=== PATIENT | male | born 1975 | race Caucasian/White ===

== ENCOUNTER → 2021-01-16 01:40 | Outpatient (CLI) | payer BC, SELFPAY ==
[2021-01-16 19:38] LABS: SARS-CoV-2 RNA PCR Negative
== END ==
PROVIDERS: PCP Family Medicine; Visit Provider Internal Medicine Gastroenterology
DX: Z01.812 Encounter for preprocedural laboratory examination (principal); Z20.822 Contact with and (suspected) exposure to COVID-19
CPT/HCPCS: C9803; U0003; U0005

== ENCOUNTER 2021-01-20 02:01 | Day surgery (SDC) | payer BC, SELFPAY ==
[2021-01-15 16:11] VITALS: BMI 29.3
[2021-01-20 09:29] VITALS: BP 126/86; PULSE 91; RESP 16; TEMP 36.7; O2SAT 100; BMI 29.0
[2021-01-20] MEDS: LACTATED RINGERS 1,000 ML 150 ML IV CONT (09:32)
--- NOTE | 2021-01-20 10:15 | WPDGICN ---
Assessment and Plan Assessment and plan (1) Rectal bleeding: Code(s): K62.5 - Hemorrhage of anus and rectum Status: Acute Assessment and Plan: Patient has had rectal bleeding and mucus in his stools over the last 3 months that this is a change from his baseline soft stool. For this reason colonoscopy will be performed. Differential diagnosis includes hemorrhoids, proctitis,polyps, etc. plan is to proceed with colonoscopy before executed treatment plan. (2) Anxiety and depression: Code(s): F41.9 - Anxiety disorder, unspecified; F32.9 - Major depressive disorder, single episode, unspecified Status: Chronic GI Consult Note Consult date/time: 01/20/21 10:15 HPI: Thomas Art is a 45 year old male Seen in evaluation at the request of Dr. Atkins. Patient reports a lifelong history of soft stools. Usually 1-2 a day. He over last 3 months he has noticed significant gas along with mucus and occasional bright red blood per rectum typically in the morning. She denies any change in bowel habits. He denies any pain. His stools have remained loose as they have been for many years. Stools themselves have had no blood. Patient's family history is noncontributory. He denies any recent illness. His family members have been healthy. Primary care service is empirically given the patient a trial of prednisone over last 1 week with no change in symptoms. Patient was given a trial of a proton pump inhibitor with no change in symptoms as well. Review of Systems Review of Systems: All systems reviewed & are unremarkable except as noted in HPI and below PMFSH Past Medical History Medical History (Updated 01/20/21 @ 10:17 by Vincent Moreno MD) Anxiety and depression Recurrent sinusitis Vitamin D deficiency Family History Family History Father Diabetes mellitus Mother Diabetes mellitus Social History Social History Smoking status: Never smoker Alcohol intake: current Drinks per week: 5 Living arrangements: with family Spiritual care concerns: No Meds Home Medications and Allergies Home Medications Medication Instructions Recorded Confirmed Type citalopram 20 mg tablet 20 mg PO DAILY #90 tablet 10/15/20 01/20/21 Rx esomeprazole magnesium 40 mg 40 mg PO DAILY #90 tab-cap 10/15/20 01/20/21 Rx capsule,delayed release cetirizine [Zyrtec] 10 mg PO DAILY PRN 01/15/21 01/20/21 History multivitamin [Men's Multi-Vitamin] 1 tablet PO DAILY 01/15/21 01/20/21 History Allergies Allergy/AdvReac Type Severity Reaction Status Date / Time No Known Allergies Allergy Mild Verified 01/20/21 09:28 Vital Signs Vital Signs - 24 hr 01/20/21 09:29 Temperature 98.1 F Pulse Rate 91 Respiratory Rate 16 Blood Pressure 126/86 Pulse Oximetry 100 Exam Narrative: Exam Narrative: Physical exam reveals patient to be alert. Vital signs stable. HEENT exam is unremarkable. Patient is anicteric. Lungs are clear to auscultation and percussion. Heart is without murmur or extra sounds. Abdominal exam bowel sounds are present soft nontender with no hepatosplenomegaly. Digital external rectal exam is normal.
--- NOTE | 2021-01-20 10:24 | WPDANESEPPF ---
Anes - Initial Pre Proc Eval Procedure: Operation Date: 01/20/21 10:00 Proposed Procedures p Colonoscopy - Vincent Moreno MD Date/Time: 01/20/21 10:24 Surgeon: Vincent Moreno MD Pre Op Diagnosis: bloody diarrhea Patient Data Age: 45 Gender: M Height: 5 ft 7 in Weight: 83.9 kg Last Vital Signs Temp 98.1 F 01/20/21 09:29 Pulse 91 01/20/21 09:29 Resp 16 01/20/21 09:29 BP 126/86 01/20/21 09:29 Pulse Ox 100 01/20/21 09:29 Allergies Allergy/AdvReac Type Severity Reaction Status Date / Time No Known Allergies Allergy Mild Verified 01/20/21 09:28 Home Medications Medication Instructions Recorded Confirmed Type citalopram 20 mg tablet 20 mg PO DAILY #90 tablet 10/15/20 01/20/21 Rx esomeprazole magnesium 40 mg 40 mg PO DAILY #90 tab-cap 10/15/20 01/20/21 Rx capsule,delayed release cetirizine [Zyrtec] 10 mg PO DAILY PRN 01/15/21 01/20/21 History multivitamin [Men's Multi-Vitamin] 1 tablet PO DAILY 01/15/21 01/20/21 History Patient hx anesthesia problems: none Family hx anesthesia problems: none [facility] Past Medical History Medical History (Updated 01/20/21 @ 10:17 by Vincent Moreno MD) Anxiety and depression Recurrent sinusitis Vitamin D deficiency Family History Family History Father Diabetes mellitus Mother Diabetes mellitus Social History Social History Smoking status: Never smoker Alcohol intake: current Drinks per week: 5 Living arrangements: with family Spiritual care concerns: No Anes - Eval Final PreProcedure Day of Procedure 01/20/21 10:24 Patient weight: normal Heart: regular rate and rhythm Lungs: clear to auscultation Airway: Mallampati scale class II Neurological: alert and oriented Last oral intake: >/= 8 hours ASA classification: II Emergent: no Anesthetic plan: proceed Anesthesia type and monitoring: general GIVS and standard monitoring Informed Consent: The patient's anesthetic plan and its attendant risks and benefits were discussed with the patient/family/POA. Questions were solicited and answers provided to the satisfaction of the patient/family/POA.
[2021-01-20 10:49] VITALS: BP 76/51; PULSE 76; RESP 27; O2SAT 91
[2021-01-20 10:59] VITALS: BP 88/49; PULSE 75; RESP 16; O2SAT 92
[2021-01-20 11:09] VITALS: BP 108/71; PULSE 76; RESP 11; O2SAT 97
== END 2021-01-20 11:24 | disposition home or self-care (01) ==
PROVIDERS: PCP Family Medicine; Visit Provider Internal Medicine Gastroenterology
PROC: 0DJD8ZZ Inspection of Lower Intestinal Tract, Via Natural or Artificial Opening Endoscopic (ICD-10-PCS; CPT 45378; principal; 2021-01-20 10:00)
DX: K51.214 Ulcerative (chronic) proctitis with abscess (principal); F41.8 Other specified anxiety disorders; E55.9 Vitamin D deficiency, unspecified
CPT/HCPCS: 45380; 88305; C9803; J2704; J7120; U0003; U0005

== ENCOUNTER 2022-07-10 10:26 | Emergency (ER) | payer BC, SELFPAY ==
[2022-07-10 10:53] VITALS: BP 118/71; PULSE 116; RESP 16; TEMP 37.1; O2SAT 97
--- NOTE | 2022-07-10 11:48 | ED.URI ---
HPI - URI/Sore Throat General Chief Complaint: Upper Respiratory Infection Stated Complaint: cold/flu Time Seen by Provider: 07/10/22 11:00 Source: patient Mode of arrival: ambulatory Limitations: no limitations History of Present Illness HPI Narrative: Mr. Art is a 46-year-old male patient presenting to clinic today with complaints of cold/flu symptoms. He reports that for 2 days he has had a lot of fever, chills, body aches, sore throat, and congestion. MD elicited complaint: sore throat and nasal congestion Related Data Home Medications Medication Instructions Recorded Confirmed multivitamin 1 tablet PO DAILY 01/15/21 07/10/22 esomeprazole magnesium 40 mg 40 mg PO DAILY 07/10/22 07/10/22 capsule,delayed release Allergies Allergy/AdvReac Type Severity Reaction Status Date / Time No Known Allergies Allergy Mild Verified 07/10/22 10:54 Review of Systems Review of Systems: Pertinent positives per HPI. Patient denies any rash, headache, visual changes, dizziness, shortness of breath, chest pain, palpitations, nausea, vomiting, diarrhea, constipation, abdominal pain, or any urinary issues. 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 There is no relevant family history pertinent to the patient complaint. Exam Narrative: General: Well-developed, well nourished, in no apparent distress Head: Normocephalic, atraumatic Eyes: Pupils equally round and reactive to light bilaterally, EOM intact, sclera and conjunctive clear, no discharge, lids normal Ears: TMs intact and clear, ear canals clear, no drainage, grossly hearing normal. Nose: Nares patent, clear nasal discharge, no inflammation, no sinus tenderness. Mouth: Oral pharynx without lesions or masses, good dentition, MMM. Oropharynx red, postnasal drip Neck: Supple, trachea midline, no enlargement of anterior or posterior cervical nodes, no thyroid masses or goiter palpable. Cardio: Regular rate and rhythm, s1 and s2 normal, no murmur appreciated. Resp: Clear to auscultation bilaterally, no rhonchi, rales, wheezing or rubs Course Course Emergency Course: Portions of this record may have been created with voice recognition software. Level of Care: Express Care Visit Vital Signs Vital signs: Vital Signs Temperature 37.1 C 07/10/22 10:53 Pulse Rate 116 H 07/10/22 10:53 Respiratory Rate 16 07/10/22 10:53 Blood Pressure 118/71 07/10/22 10:53 Pulse Oximetry 97 07/10/22 10:53 Temperature 37.1 C 07/10/22 10:53 Pulse Rate 116 H 07/10/22 10:53 Respiratory Rate 16 07/10/22 10:53 Blood Pressure 118/71 07/10/22 10:53 Pulse Oximetry 97 07/10/22 10:53 Vital signs reviewed MDM - URI/Sore Throat MDM Narrative Medical decision making narrative: At the time of visit patient is resting comfortably on the exam table. Strep and influenza screen were completed in the clinic and were negative. Offered COVID testing and patient declined at this time. I suspect the patient has an upper respiratory infection/pharyngitis/viral syndrome. Supportive measures were discussed and natasha
== END 2022-07-10 12:12 | disposition home or self-care (01) ==
PROVIDERS: Emergency Provider Nurse Practitioner Family; PCP Family Medicine
DX: J06.9 Acute upper respiratory infection, unspecified (principal); B34.9 Viral infection, unspecified; J02.9 Acute pharyngitis, unspecified; F41.9 Anxiety disorder, unspecified; F32.A Depression, unspecified
CPT/HCPCS: 87081; 87804; 87880; 99213; G0463

== ENCOUNTER 2024-03-20 09:22 | Outpatient (CLI) | payer OTHER, SELFPAY ==
[2024-04-08 17:26] VITALS: BMI 30.4
--- NOTE | 2024-04-08 17:26 | WPDHOMESLEEP ---
Sleep Study - Home Unattended Date of Study: 03/20/24 Ordering Provider: ARNAV Medina Interpreting Provider: Susan Irizarry, DO Home Sleep Study Type: Watch PAT Height: 1.7 m Weight: 87.997 kg Body Mass Index: 30.4 Neck Circumference (inches): 17 Shubert: 6 Reason for Sleep Study snoring, daytime hypersomnia Sleep History The patient is a 48-year-old male that had a sleep study ordered by the pulmonary group for evaluation of sleep apnea. The patient rarely awakens from sleep short of breath. He occasionally awakens at night with heartburn, belching or cough. He occasionally snores but it is never loud enough that others complain. He constantly has trouble sleeping when he has a cold. He rarely wakes up gasping for air throughout the night. He occasionally has breathing problems at night observed by himself or others. He denies sweating excessively at night. He denies having heart palpitations or irregular heartbeats during the night. He occasionally falls asleep during the day but never while driving. He denies sleep paralysis and cataplexy. He occasionally has trouble at school or work due to sleepiness. He rarely experiences vivid dreamlike scenes upon awakening or falling asleep. He denies feeling afraid of going to sleep. He rarely has nightmares. He rarely remembers his dreams. He frequently has thoughts racing through his mind. He rarely feels sad or depressed. He frequently has anxiety. He occasionally has muscular tension. He occasionally notices parts of his body jerk. He denies kicking during the night. He denies having crawling and aching feelings in his legs and denies having leg pain during the night. He denies grinding his teeth during sleep and denies awakening with morning jaw pain. He is occasionally bothered by pain during the day but never awakened by pain during the night. He occasionally wakes up feeling stiff in the morning. He occasionally wakes up with sore or achy muscles. He rarely wakes up with pain in the neck, spine or other joints. He goes to bed at 8:00 p.m. on weekdays and at 9:00 p.m. on the weekends. It takes him 30 minutes to fall asleep. He wakes up throughout the night for unknown reasons and can take 1-2 hours to fall back asleep. He wakes up at 4:30 a.m. on weekdays and at 7:30 a.m. on the weekends. He typically gets 6-8 hours of sleep per night. He will stay in bed for 30-60 minutes after waking up in the morning. He currently lives with his and 2 children. He denies consuming any caffeinated beverages within 2 hours of bedtime. He denies engaging in physical exercise before bedtime. He denies reading before falling asleep. He will take naps in afternoon or the evening but they are not refreshing. He consumes 2-3 caffeinated beverages throughout the day. He will occasionally have 1 alcoholic beverage. He denies tobacco and recreational drug use. 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
== END 2024-03-21 14:24 | disposition home or self-care (01) ==
LOC: ANHCSM 09:22
PROVIDERS: PCP Family Medicine; Visit Provider Physician Assistant
DX: G47.33 Obstructive sleep apnea (adult) (pediatric) (principal); G47.10 Hypersomnia, unspecified
CPT/HCPCS: 95800

== ENCOUNTER 2024-06-13 08:18 | Outpatient (CLI) | payer OTHER, SELFPAY ==
--- NOTE | ~2024-06-13 | XR_ITS ---
EXAMINATION: XR wrist LT 2V DATE: 06/13/2024 08:26 INDICATION: Left wrist pain. TECHNIQUE: 2 views of left wrist were obtained. COMPARISON: None. FINDINGS: Bone alignment is normal. No fracture. Joint spaces are normal. IMPRESSION: 1. Normal left wrist. Reviewed, dictated and finalized at location B. IMPRESSION: 1. Normal left wrist.
== END 2024-06-13 08:19 | disposition home or self-care (01) ==
LOC: GOSHIMG 08:19
PROVIDERS: PCP Family Medicine; Visit Provider Student in an Organized Health Care Education/Training Program
DX: M25.532 Pain in left wrist (principal)
CPT/HCPCS: 73100

== ENCOUNTER 2024-07-10 08:43 | Outpatient (CLI) | payer OTHER, SELFPAY ==
--- NOTE | 2024-07-10 08:49 | ECHO_ITS ---
Patient Info Name: Thomas Art Age: 48 years : 1975 Gender: Male Ht: 67 in Wt: 194 lbs BSA: 2.07 m2 HR: 65 bpm BP: 131 / 91 mmHg Heart Rhythm: Sinus Rhythm Technical Quality: Good Exam Date: 07/10/2024 9:14 AM Exam Location: Echo Lab Patient Status: Outpatient Admit Date: 07/10/2024 Staff Ordering Physician: Allison Greenfield PA-C Delivery Manager: Wilber Hernandez RDCS Attending Provider: Allison Greenfield PA-C Exam Type: CA echo doppler color flow Study Info Indications - primmary centeral sleep apnea Complete two-dimensional, color flow and Doppler transthoracic echocardiogram is performed. Summary 1. Complete two-dimensional, color flow and Doppler transthoracic echocardiogram is performed. 2. Left ventricular chamber dimension is normal. 3. Left ventricular systolic function is normal, estimated at 60-65%. 4. The left ventricular diastolic function is grade I diastolic dysfunction. 5. E/e' 10 is mildly elevated. 6. Left atrial chamber dimension is mildly enlarged. 7. There is mild mitral valve regurgitation. 8. There is trace tricuspid valve regurgitation. 9. No pulmonary hypertension, estimated pulmonary arterial systolic pressure is 26 mmHg. Left Ventricle E/e' 10 is mildly elevated. Left ventricular chamber dimension is normal. Left ventricular systolic function is normal, estimated at 60-65%. The left ventricular diastolic function is grade I diastolic dysfunction. Right Ventricle Right ventricular systolic function is normal and with normal TAPSE 2.9 cm. Right ventricular chamber dimension is normal. Left Atria Left atrial chamber dimension is mildly enlarged. Right Atria Right atrial chamber dimension is normal. Aortic Valve The aortic valve is trileaflet. There is no aortic valve stenosis. There is no aortic valve regurgitation. Pulmonic Valve There is no pulmonic regurgitation. Mitral Valve There is no mitral valve stenosis. There is mild mitral valve regurgitation. Tricuspid Valve There is trace tricuspid valve regurgitation. No pulmonary hypertension, estimated pulmonary arterial systolic pressure is 26 mmHg. Pericardium/Pleural There is no pericardial effusion. Inferior Vena Cava Normal inferior vena cava with >50% collapse upon inspiration consistent with normal right atrial pressure, 5 mmHg. Aorta The aortic root size at the sinus of Valsalva is normal. Left Ventricular Outflow Tract Name Value Normal LVOT 2D LVOT Diameter 1.8 cm LVOT Doppler LVOT Peak Gradient 5 mmHg LVOT Mean Gradient 3 mmHg LVOT VTI 23 cm LVOT VTI/AV VTI Ratio 0.9 LVOT Stroke Volume 59 ml LVOT CO 3.9 l/min LVOT CI 1.9 l/min/m2 Mitral Valve Name Value Normal MV Doppler MV Decel Steele 425 cm/s2 MV PHT 56 ms MV Area (PHT) 4.0 cm2 4.0-5.0 MV Regurgitation Doppler MR Peak Gradient 41 mmHg MV Diastolic Function MV E Peak Velocity 82 cm/s MV A Peak Velocity 96 cm/s MV E/A 0.8 MV Decel Time 192 ms MV Annular TDI MV E/e' (Septal) 13.0 <=8.0 MV E/e' (Lateral) 8.8 <=8.0 MV E/e' (Average) 10.9 Tricuspid Valve Name Value Normal TV Regurgitation Doppler TR Peak Velocity 229 cm/s TR Peak Gradient 21 mmHg Estimated PAP/RSVP RA Pressure 5 mmHg <=5 PA Systolic Pressure 26 mmHg <36 RV Systolic Pressure 26 mmHg <36 Aortic Valve Name Value Normal AV Doppler AV Peak Velocity 125 cm/s AV Peak Gradient 6 mmHg AV Mean Gradient 4 mmHg AV VTI 26 cm AV Area (Cont Eq VTI) 2.3 cm2 >=3.0 AV Area (Cont Eq [place]) 2.2 cm2 AV Regurgitation 2D LVOT Area 2.5 cm2 Ventricles Name Value Normal LV Dimensions 2D/MM IVS Diastolic Thickness (2D) 0.9 cm 0.6-1.0 LVID Diastole (2D) 4.6 cm 4.2-5.8 LVIW Diastolic Thickness (2D) 1.0 cm 0.6-1.0 LVID Systole (2D) 3.1 cm 2.5-4.0 LVOT Diameter 1.8 cm LV Mass (2D Cubed) 148.60 g 88.00-224.00 LV Mass Index (2D Cubed) 72 g/m2 49-115 Relative Wall Thickness (2D) 0.45 LV Fractional Shortening/Ejection Fraction 2D/MM LV Fractional Shortening (2D) 33 % 25-43 LV EF (2D Teicholz) 62 % 52-72 LV Diastolic Volume (4C MOD) 102 ml LV EF (4C MOD) 71 % LV Diastolic Volume (2C MOD) 103 ml LV EF (2C MOD) 62 % LV Diastolic Volume (BP MOD) 103 ml 62-150 LV Diastolic Volume Index (BP MOD) 50 ml/m2 34-74 LV Systolic Volume (BP MOD) 35 ml 21-61 LV Systolic Volume Index (BP MOD) 17 ml/m2 11-31 LV EF (BP MOD) 66 % 52-72 LV Diastolic Length (4C) 7.4 cm LV Systolic Length (4C) 5.8 cm LV Stroke Volume (4C MOD) 72 ml Atria Name Value Normal LA Dimensions LA Volume (4C A-L) 36 ml LA Volume (BP A-L) 48 ml RA Dimensions RA Area (4C) 14.5 cm2 <=18.0 Report Signatures
== END 2024-07-10 08:44 | disposition home or self-care (01) ==
PROVIDERS: PCP Family Medicine; Visit Provider Physician Assistant
DX: G47.31 Primary central sleep apnea (principal); R93.1 Abnormal findings on diagnostic imaging of heart and coronary circulation
CPT/HCPCS: 93306

== ENCOUNTER 2024-12-23 17:11 | Outpatient (CLI) | payer OTHER, SELFPAY ==
--- OUTSIDE RECORDS SUMMARY | 2024-12-23 17:30 | XMS_ITS | Continuity of Care Document ---
Author Organization [facility] Address [address] [facility] [address] [place] [address] Phone Care Team Providers Care Optical Instrument Repairer Name Role Phone Hill Hardy MD Unavailable [...] Providers Copied on Encounter [facility] , [address] [facility] [address], [address], [place] tel:[phone] [facility] No Information 1 Antony Alejandre. [address], [place], [place], [address] . tel: [phone] OFFICE/OUTPAT IENT VISIT EST [facility] , [address] [facility] [address] [address], [place], [address], [place] tel:[phone] [facility] Contusion of left great toe without damage to nail, subsequent encounter 1 Antony Alejandre. [address], [place], [place], [address] . tel:[phone] OFFICE/OUTPAT IENT VISIT EST [facility] , [address] [address], [place], [address], [place] tel:[phone] [facility] Contusion of left great toe without damage to nail, subsequent encounter 1 Antony Alejandre. [address], [place], [place], [address] . tel: [phone] OFFICE/OUTPAT IENT VISIT EST [facility] , [address] [address], [place], [address], [place] tel:[phone] [facility] Contusion of left great toe without damage to nail, subsequent encounter 1 Antony Alejandre. [address], [place], [place], [address] . tel: [phone] OFFICE/OUTPAT IENT VISIT NEW [facility] , [address] [address], [place], [address], [place] tel:[phone] [facility] Pain in left footPain in left ankle and joints of left footBody mass index [BMI]30.0-30.9, adultContusion of left great toe without damage to nail, initial encounter 1 Antony Hill. [address], [place], [place], [address] . tel: [phone] Family History Family Member Type Diagnosis Age At Onset Father Problem Alive and well Mother Problem hypertension Father Problem hypertension Brother Problem Alive and well Mother Problem Diabetes mellitus Father Problem Diabetes mellitus Payers Payer name Insurance type Covered republican ID Authorevona lisa(s) [place] [employer] [place] [id number] Social History Type Description Quantity Date Captured [...]
--- OUTSIDE RECORDS SUMMARY | 2024-12-23 17:30 | XMS_ITS | Clinical Summary ---
Author Organization [facility] Address [address] [facility] [place] [address] Care Team Providers Care Rescue Worker Name Role Phone Unavailable Primary Care Provider Unavailabl e Source Comments [facility],non-owned Affiliates and Associated Physician Practices is amultiple site organization consisting of ambulatory clinics and hospital sitesin [place], [place], [place] and [place]. This disclosure is being madepursuant to the Care Everywhere program and may not contain all information available regarding this patient. Last updated 18.[employer] [facility] Allergies No known active allergies Medications * Be aware that medications may not be up to date on this document. Alwaysverify current medications with the patient. Citalopram Hydrobromide (CITALOPRAM PO) Acti ve Omeprazole Magnesium (PRILOSEC OTC PO) Ac tive Cetirizine HCl (ZYRTEC ALLERGY PO) Active Fluticasone Propionate (FLONASE NA) Active albuterol HFA (PROVENTIL;VENTOL IN;PROAIR) 108 (90 BASE) MCG/ACT inhalerIndication s:Acute bronchitis, unspecified organism Inhale 2 puffs by mouth every 4 hours as needed for Shortness of Breath, Wheezing or Cough 1 Inhaler 8 Active benzonatate (TESSALON) 200 MG capsuleIndication s:Acute bronchitis, unspecified organism Take 1 capsule by mouth 3 times daily as needed for Cough 30 capsule 8 Active naproxen (NAPROSYN) 500 MG tablet Take 1 tablet by mouth 2 times daily as needed for Pain 15 tablet 0 Active HYDROcodone-aceta minophen (NORCO) 5-325 MG tablet Take 1 tablet by mouth every 8 hours as needed for Pain (severe) 8 tablet 0 Active Immunizations Immunization Administration Dates Next Due INFLUENZA VACCINE, QUADR. (F LUZONE; FLULAVAL; FLUARIX; AFLURIA QUADRIVALENT; 6MO+), 0.5 ML (IIV4) 06/24/2018 Social History Tobacco Use Types Packs/Day Years Used Date Smoking Tobacco: Never Smokeless Tobacco: Never Tobacco Cessation:Counseling Given: Yes Sex and Gender Information Value Date Recorded Sex Assigned at Not on file Legal Sex Male 10:01 AM CDT Gender Identity Not on file Sexual Orientation Not on file Last Filed Vital Signs Vital Sign Reading Time Taken Comments Blood Pressure 131/85 05/22/2020 10:24 PM CDT Pulse 98 05/22/2020 7:09 PM CDT Temperature 36.6 C (97.9 F) 05/22/2020 7:09 PM CDT Respiratory Rate 16 05/22/2020 7:09 PM CDT Oxygen Saturation 98% 05/22/2020 7:09 PM CDT Inhaled Oxygen Concentration - - Weight 86.2 kg (190 lb) 05/22/2020 7:09 PM CDT Height 170.2 cm (5' 7 ) 05/22/2020 7:09 PM CDT Body Mass Index 29.76 05/22/2020 7:09 PM CDT Plan of Treatment Health Maintenance Due Date Last Done Comments COLOGUARD (AGES 45-75) - COL ON CA SCREENING 1975 COLON MONITORING 1975 COLONOSCOPY - COLON CA SCREENING 1977 CT COLONOGRAPHY - COLON CA SCREENING 1975 Colorectal Cancer Screening 1975 FIT - COLON CA SCREENING 1975 FLEX SIG - COLON CA SCREENING 1975 LIPID TESTING 1975 HIV SCREENING 1992 HEPATITIS C SCREENING 12/17/1995 DTAP/TDAP/TD VACCINES (1 - Tdap) 1996 HEPATITIS B VACCINE (1 of 3 - 19+ 3-dose series) 1996 SCREENING FOR DIABETES 05/26/2018 COVID-19 VACCINE (2023-2 5 season) 2024 DEPRESSION SCREENING 08/14/2024 INFLUENZA VACCINE (Season Ended) 2025 06/24/20 18 ZOSTER VACCINE (1 of 2) 12/22/2027 HIB VACCINE Aged Out No longer eligi ble based on patient's age to complete this topic HPV VACCINE Aged Out No longer eligi ble based on patient's age to complete this topic MENINGOCOCCAL (Group B) VACC INE SHARED DECISION-MAKING Aged Out No longer eligibl e based on patient's age to complete this topic MENINGOCOCCAL GROUPS A/C/Y/W VACCINE Aged Out No longer eligible b ased on patient's age to complete this topic PNEUMOCOCCAL VACCINE Aged Out No long er eligible based on patient's age to complete this topic Insurance [facility] Address: [place] [address] [employer] [place] [phone]
--- OUTSIDE RECORDS SUMMARY | 2024-12-23 17:30 | XMS_ITS | Continuity of Care Document ---
Author Organization [facility] Address [address] [place] [address] Phone Care Team Providers Care Solar Sales Specialist Name Role Phone Chay Rueda Unavailable Unavailable Procedures Procedure Date Office/outpatient Visit, Est Office/outpatient Visit, Est Eye Exam, New Patient Advance Directives Directive Yes / No Effective Date File Name No Information Encounters Encounter Description Practice Location Reason(s) For Visit Diagnoses Date Provider Providers Copied on Encounter Office/outpat ient Visit, Est [facility], [address] [place] [address] [address], [place], [place], [address], [place] tel:[phone] [facility] No Information [address] Marybeth Cartwright. [address], [place], [place], [facility], . tel:[phone] Office/outpat ient Visit, [facility], [address] [place] [address] [address], [place], [place], [address], [place] tel:[phone] [facility] No Information Oct-0 5-200 7 Chip Edluis. [address], [place], [place], [facility], [place]. tel:[phone] [facility], [address] [place] [address] [address], [place], [place], [address], [place] tel:[phone] [facility] No Information Oct-0 3-200 7 Chip Edluis. [address], [place], [address], [place]. tel:[phone] Family History Family Member Type Diagnosis Age At Onset No Information Payers Payer name Insurance type Covered republican ID Debbie gonzalez(s) [employer] [place] [id number] Social History Type Description Quantity Date Captured [...]
--- OUTSIDE RECORDS SUMMARY | 2024-12-23 17:30 | XMS_ITS | Clinical Summary ---
Author Organization [facility] Address [address] [place] [address] Care Team Providers Care Lube Worker Name Role Phone Kaur Evans MD Primary Care Pro vider Allergies No known active allergies Medications butalbital-acet aminophen-caffe ine 50-300-40 MG capsule Take 1 capsule by mouth every 4 (four) hours as needed for Pain. 12 capsule 03/17/2020 Active citalopram 20 MG tablet Take 20 mg by mouth daily. 03/13/2020 Active Family History Medical History Relation Comments Hypertension Father Hypertension Mother Relation Status Comments Father Alive Mother Social History Tobacco Use Types Packs/Day Years Used Date Smoking Tobacco: Never Smokeless Tobacco: Never Alcohol Use Standard Drinks/Week Comments Yes 0 (1 standard drink = 0.6 oz pur e alcohol) socially Sex and Gender Information Value Date Recorded Sex Assigned at Not on file Legal Sex Male 2:02 PM CDT Gender Identity Not on file Sexual Orientation Not on file Last Filed Vital Signs Vital Sign Reading Time Taken Comments Blood Pressure 120/77 03/17/2020 11:44 PM CDT Pulse 66 03/17/2020 11:44 PM CDT Temperature 36.9 C (98.4 F) 03/17/2020 11:44 PM CDT Respiratory Rate 18 03/17/2020 11:44 PM CDT Oxygen Saturation 98% 03/17/2020 11:44 PM CDT Inhaled Oxygen Concentration - - Weight 86.2 kg (190 lb) 03/17/2020 11:44 PM CDT Height 170.2 cm (5' 7 ) 03/17/2020 11:44 PM CDT Body Mass Index 29.76 03/17/2020 11:44 PM CDT Plan of Treatment Health Maintenance Due Date Last Done Comments Colorectal Cancer Screening Colonoscopy (10 Years) 1975 Annual Physical 1980 Hepatitis C 12/22/1995 DTaP, Tdap and Td Vaccines ( 1 - Tdap) 1996 Hepatitis B Vaccines (1 of 3 - 19+ 3-dose series) 1996 COVID-19 Vaccine (1 - 2023-2 5 season) 2024 Meningococcal B Vaccine Aged Out No l onger eligible based on patient's age to complete this topic Meningococcal Vaccine Aged Out No gregory tavon eligible based on patient's age to complete this topic Pneumococcal Vaccine: Pediat rics (0 to 5 Years) and At-Risk Patients (6 to 49 Years) Aged Out No longer eligible b ased on patient's age to complete this topic RSV Immunizations Under 20 Months Aged Out No longer eligible based on patient's age to complete this topic Insurance [facility] Care Teams Lube Worker Relationship Specialty Start Date End Date Kaur Evans MD [address] [place] [address] PCP - General FAMILY PRACTICE 03/17/20
[2024-12-23 17:45] LABS: Hematocrit 46.4 % (42.0-52.0); Hemoglobin 15.6 g/dL (14.0-18.0); Mean Corpuscular HGB Conc 33.6 g/dl (32-36); Mean Corpuscular Hemoglobin 31.8 pg (26-34); Mean Corpuscular Volume 94.5 fl (80-100); Platelet Count Result 200 k/mm3 (150-375); Red Blood Count 4.91 M/mm3 (4.6-6.20); Red Cell Distribution Width 12.3 % (11.5-14.5); White Blood Count 6.6 K/mm3 (4.5-10.0)
[2024-12-23 19:11] LABS: Alanine Aminotransferase 29 U/L (6-50); Albumin Level 4.4 g/dL (3.5-5.1); Alkaline Phosphatase 71 U/L (38-126); Anion Gap 9 mmol/L (4-12); Aspartate Amino Transferase 27 U/L (17-59); Bilirubin,Total 0.8 mg/dL (0.2-1.3); Blood Urea Nitrogen 15 mg/dL (9-20); CRP < 0.5 mg/dL (<1.0); Carbon Dioxide 23 mmol/L (22-30); Chloride 109 mmol/L (98-107); Estimated Glomerular Filt Rate > 60; Glucose 88 mg/dL (65-110); Potassium 3.9 mmol/L (3.4-5.0); Sodium 141 mmol/L (137-145)
[2024-12-23 19:16] LABS: Erythrocyte Sedimentation Rate 2 mm/hr (0-20)
== END 2024-12-23 17:12 | disposition home or self-care (01) ==
LOC: ANHLAB 17:13
PROVIDERS: PCP Family Medicine; Visit Provider Nurse Practitioner
DX: K51.20 Ulcerative (chronic) proctitis without complications (principal); R19.7 Diarrhea, unspecified
CPT/HCPCS: 36415; 80053; 85027; 85652; 86140

== ENCOUNTER 2024-12-25 09:21 | Outpatient (CLI) | payer OTHER, SELFPAY ==
--- OUTSIDE RECORDS SUMMARY | 2024-12-25 09:29 | XMS_ITS | Continuity of Care Document ---
Author Organization [facility] Address [address] [facility] [address] [place] [address] Phone Care Team Providers Care Exterminator Helper Name Role Phone Hill Hardy MD Unavailable [...] Providers Copied on Encounter [facility] , [address] [facility] [address], [address], [place] tel:[phone] [facility] No Information 1 Antony Alejandre. [address], [place], [place], [address] . tel: [phone] OFFICE/OUTPAT IENT VISIT EST [facility] , [address] [facility] [address] [address], [place], [address], [place] tel:[phone] [facility] Contusion of left great toe without damage to nail, subsequent encounter 1 Antony Alejandre. [address], [place], [place], [address] . tel:[phone] OFFICE/OUTPAT IENT VISIT EST [facility] , [address] [address], [place], [address], [place] tel:[phone] [facility] Contusion of left great toe without damage to nail, subsequent encounter 1 Antony Alejandre. [address], [place], [place], [address] . tel: [phone] OFFICE/OUTPAT IENT VISIT EST [facility] , [address] [address], [place], [address], [place] tel:[phone] [facility] Contusion of left great toe without damage to nail, subsequent encounter 1 Antony Alejandre. [address], [place], [place], [address] . tel: [phone] OFFICE/OUTPAT IENT VISIT NEW [facility] , [address] [address], [place], [address], [place] tel:[phone] [facility] Pain in left footPain in left ankle and joints of left footBody mass index [BMI]30.0-30.9, adultContusion of left great toe without damage to nail, initial encounter 1 Antony Hill. [address], [place], [place], [address] . tel: [phone] Family History Family Member Type Diagnosis Age At Onset Father Problem Alive and well Mother Problem hypertension Father Problem hypertension Brother Problem Alive and well Mother Problem Diabetes mellitus Father Problem Diabetes mellitus Payers Payer name Insurance type Covered democrat ID Authorevona lisa(s) [place] [employer] [place] [id number] Social History Type Description Quantity Date Captured [...]
--- OUTSIDE RECORDS SUMMARY | 2024-12-25 09:29 | XMS_ITS | Clinical Summary ---
Author Organization [facility] Address [address] [place] [address] Care Team Providers Care Coastal/Harbor Defense Officer Name Role Phone Unavailable Primary Care Provider Unavailabl e Source Comments [facility],non-owned Affiliates and Associated Physician Practices is amultiple site organization consisting of ambulatory clinics and hospital sitesin [place], [place], [place] and [place]. This disclosure is being madepursuant to the Care Everywhere program and may not contain all information available regarding this patient. Last updated 18.[facility] Allergies No known active allergies Medications * [...] patient's age to complete this topic Insurance [facility] Address: [place] [address] [employer] [place] [id number]
--- OUTSIDE RECORDS SUMMARY | 2024-12-25 09:29 | XMS_ITS | Continuity of Care Document ---
Author Organization [facility] Address [address] [place] [address] Phone Care Team Providers Care Kiln Burner Name Role Phone Chay Rueda Unavailable Unavailable Procedures Procedure Date Office/outpatient Visit, Est Office/outpatient Visit, Est Eye Exam, New Patient Advance Directives Directive Yes / No Effective Date File Name No Information Encounters Encounter Description Practice Location Reason(s) For Visit Diagnoses Date Provider Providers Copied on Encounter Office/outpat ient Visit, Est [facility], [address] [place] [address] [address], [place], [place], [address], [place] tel:[phone] [facility] No Information 9-200 9 Marybeth Cartwright. [address], [place], [place], [facility], . tel:[phone] Office/outpat ient Visit, [facility], [address] [place] [address] [address], [place], [place], [address], [place] tel:[phone] [facility] No Information Oct-0 5-200 7 Chip [address]luis. [address], [place], [place], [facility], [place]. tel:[phone] [facility], [address] [place] [address] [address], [place], [place], [address], [place] tel:[phone] [facility] No Information Oct-0 3-200 7 Chip [address]luis. [address], [place], [address], [place]. tel:[phone] Family History Family Member Type Diagnosis Age At Onset No Information Payers Payer name Insurance type Covered democrat ID Debbie gonzalez(s) [employer] CI [id number] Social History Type Description Quantity Date Captured [...]
--- OUTSIDE RECORDS SUMMARY | 2024-12-25 09:29 | XMS_ITS | Clinical Summary ---
Author Organization [facility] Address [address] [place] [address] Care Team Providers Care Fur Cutting Machine Operator Name Role Phone Kaur Evans MD Primary [...] patient's age to complete this topic Insurance [facility] Care Teams Fur Cutting Machine Operator Relationship Specialty Start Date End Date Kaur Evans MD [address] [place] [address] PCP - General FAMILY PRACTICE 03/17/20
[2024-12-25 11:03] LABS: Toxigenic C. Diff NEGATIVE (NEGATIVE)
[2024-12-30 18:12] LABS: Calprotectin, Stool 13 mcg/g
== END 2024-12-25 09:22 | disposition home or self-care (01) ==
LOC: ANHLAB 09:22
PROVIDERS: PCP Family Medicine; Visit Provider Nurse Practitioner
DX: K51.20 Ulcerative (chronic) proctitis without complications (principal); R19.7 Diarrhea, unspecified
CPT/HCPCS: 83993; 87045; 87269; 87427; 87449; 87493

== ENCOUNTER 2025-03-11 05:14 | Emergency (ER) | payer OTHER, SELFPAY ==
[2025-03-11] VITALS (13 sets, daily range): BP systolic 113–137; BP diastolic 73–93; PULSE 76–78; RESP 16; TEMP 36.6–36.9; O2SAT 90–98
--- NOTE | ~2025-03-11 | CT_ITS ---
EXAMINATION: CT abdomen pelvis wo con DATE: 03/11/2025 05:42 INDICATION: Left flank pain TECHNIQUE: Computed tomography (CT) of the abdomen and pelvis was performed without intravenous contr ast. The dose-length product was 599.05 mGy-cm. Automated exposure control and iterative reconstructi on technique were employed. COMPARISON: CT dated 08/16/2014. FINDINGS: There is dependent atelectasis. Heart size normal. No significant pleural or pericardial ef fusion. There are liver cysts. The spleen, pancreas, adrenal glands are unremarkable. There is 5 mm l eft UVJ stone with mild hydroureteronephrosis. Bladder is decompressed. Gallbladder is present. Nonob structive bowel gas pattern. No significant vascular abnormality. No lymphadenopathy. No acute osseou s abnormality. IMPRESSION: 1. Left UVJ stone measuring 5 mm with mild hydroureteronephrosis. Reviewed, dictated and finalized at location B.
--- OUTSIDE RECORDS SUMMARY | 2025-03-11 05:17 | XMS_ITS | Clinical Summary ---
Author Organization [facility] Address [address] [place] [address] Care Team Providers Care Stage Hand Name Role Phone Kaur Evans MD Primary [...] 11:44 PM CDT Height 170.2 cm (5' 7) 03/17/2020 11:44 PM CDT Body Mass Index [...] patient's age to complete this topic Insurance [employer] Care Teams Stage Hand Relationship Specialty Start Date End Date Kaur Evans MD [address] [place] [address] PCP - General FAMILY PRACTICE 03/17/20
--- OUTSIDE RECORDS SUMMARY | 2025-03-11 05:17 | XMS_ITS | Clinical Summary ---
Author Organization [facility] Address [address] [place] [address] Care Team Providers Care Package Lift Operator Name Role Phone Unavailable Primary Care Provider Unavailabl e Source Comments [facility],non-owned Affiliates and Associated Physician Practices is amultiple site organization consisting of ambulatory clinics and hospital sitesin [place], [place], [place] and [place]. This disclosure is being madepursuant to the Care Everywhere program and may not contain all information available regarding this patient. Last updated 18.[employer] [facility] Allergies No known active allergies Medications * [...] 7:09 PM CDT Height 170.2 cm (5' 7) 05/22/2020 7:09 PM CDT Body Mass Index [...] 19+ 3-dose series) 1996 SCREENING FOR DIABETES 03/18/2023 0, 03/18/2020 COVID-19 VACCINE (2023-2 5 season) 2024 DEPRESSION SCREENING 08/14/2024 INFLUENZA VACCINE (#1) 2025 06/24/2018 ZOSTER VACCINE (1 of 2) 12/22/2027 HIB VACCINE Aged Out No longer eligi ble based on patient's age to complete this topic HPV VACCINE Aged Out No longer eligi ble based on patient's age to complete this topic MENINGOCOCCAL (Group B) VACCINE SHARED DECISION-MAKING Aged Out No longer eligible based on patient's age to complete this topic MENINGOCOCCAL GROUPS A/C/Y/W VACCINE Aged Out No longer eligible b ased on patient's age to complete this topic PNEUMOCOCCAL VACCINE Aged Out No long er eligible based on patient's age to complete this topic Insurance [facility] [address] [address] [employer] [place] [id number]
--- OUTSIDE RECORDS SUMMARY | 2025-03-11 05:17 | XMS_ITS | Continuity of Care Document ---
Author Organization [facility] Address [address] [place] [address] [address] [place] [address] Phone Care Team Providers Care Environmental Compliance Engineer Name Role Phone Chay Rueda Unavailable Unavailable Procedures Procedure Date Office/outpatient Visit, Est Office/outpatient Visit, Est Eye Exam, New Patient Advance Directives Directive Yes / No Effective Date File Name No Information Encounters Encounter Description Practice Location Reason(s) For Visit Diagnoses Date Provider Providers Copied on Encounter Office/outpat ient Visit, Est [facility], [address] [place] [address] [address], [place], [place], [id number], [place] tel:[phone] [facility] No Information 9-200 9 Marybeth Ochoal. [address], [place], [place], [facility], . tel:[phone] Office/outpat ient Visit, [facility], [address] [place] [address] [address], [place], [place], [id number], [place] tel:[phone] [facility] No Information Oct-0 5-200 7 Chip Edluis. [address], [place], [place], [facility], [place]. tel:[phone] [facility], [address] [place] [address] [address], [place], [place], [address], [place] tel:[phone] [facility] No Information Oct-0 3-200 7 Chip Edluis. [address], [place], [address], [place]. tel:[phone] Family History Family Member Type Diagnosis Age At Onset No Information Payers Payer name Insurance type Covered republican ID Debbie gonzalez(s) [employer] CI [id number] Social History Type Description Quantity Date Captured [...]
--- OUTSIDE RECORDS SUMMARY | 2025-03-11 05:17 | XMS_ITS | Continuity of Care Document ---
Author Organization [facility] Address [address] [facility] [address] [place] [address] Phone Care Team Providers Care Production Support Manager Name Role Phone Hill Hardy MD Unavailable [...] Providers Copied on Encounter [facility] , [address] [facility] [address], [address], [place] tel:[phone] [facility] No Information 1 Antony Alejandre. [address], [place], [place], [address] . tel: [phone] OFFICE/OUTPAT IENT VISIT EST [facility] , [address] [facility] [address] [address], [place], [address], [place] tel:[phone] [facility] Contusion of left great toe without damage to nail, subsequent encounter 1 Antony Alejandre. [address], [place], [place], [address] . tel:[phone] OFFICE/OUTPAT IENT VISIT EST [facility] , [address] [address], [place], [address], [place] tel:[phone] [facility] Contusion of left great toe without damage to nail, subsequent encounter 1 Antony Alejandre. [address], [place], [place], [address] . tel: [phone] OFFICE/OUTPAT IENT VISIT EST [facility] , [address] [address], [place], [address], [place] tel:[phone] [facility] Contusion of left great toe without damage to nail, subsequent encounter 1 Antony Alejandre. [address], [place], [place], [address] . tel: [phone] OFFICE/OUTPAT IENT VISIT NEW [facility] , [address] [address], [place], [address], [place] tel:[phone] [facility] Pain in left footPain in left ankle and joints of left footBody mass index [BMI]30.0-30.9, adultContusion of left great toe without damage to nail, initial encounter 1 Antony Hill. [address], [place], [place], [address] . tel: [phone] Family History Family Member Type Diagnosis Age At Onset Father Problem Alive and well Mother Problem hypertension Father Problem hypertension Brother Problem Alive and well Mother Problem Diabetes mellitus Father Problem Diabetes mellitus Payers Payer name Insurance type Covered alliance party ID Authorevona lisa(s) [employer] [place] [id number] Social History Type Description Quantity Date Captured [...]
[2025-03-11 05:34] LABS: Add Urine Microscopic? YES; Appearance Urine Clear (Clear); Glucose Urine UA Negative (Negative); Leukocyte Esterase Ur 1+ LEU/UL (Negative); Nitrate Urine Negative (Negative); Non Pathogenic Casts 0-2; Specific Grav Ur 1.025 (1.001-1.035)
[2025-03-11 05:43] LABS: Hematocrit 48.1 % (42.0-52.0); Hemoglobin 16.3 g/dL (14.0-18.0); Immature Granulocyte Percent A 0.4 % (0-0.5); Lymphocytes Absolute Auto 1.22 K/mm3 (0.9-3.2); Mean Corpuscular HGB Conc 33.9 g/dl (32-36); Mean Corpuscular Hemoglobin 31.5 pg (26-34); Mean Corpuscular Volume 92.9 fl (80-100); Nucleated Red Blood Cells Absolute Auto 0.000 K/mm3 (0.0-0.012); Nucleated Red Blood Cells Perc 0.0 % (0.0-0.2); Platelet Count Result 192 k/mm3 (150-375); Red Blood Count 5.18 M/mm3 (4.6-6.20); White Blood Count 7.2 K/mm3 (4.5-10.0)
--- NOTE | 2025-03-11 05:43 | ED_ITS ---
HPI - Male Genitourinary General Chief complaint: Urogenital-Male Stated complaint: L flank pain, urinary urgency Time Seen by Provider: 03/11/25 05:21 History of Present Illness HPI Narrative: Patient presents here with pain to his left flank that goes down to his groin, also feels like he is going more than usual. Has never had a kidney stone before. Associated with some nausea. Started at 3:00 a.m. this morning. Related Data Home Medications ?Medication ?Instructions ?Recorded ?Confirmed ?Last Taken ?Type multivitamin 1 tablet PO DAILY 01/15/21 02/12/25 Unknown History testosterone cypionate 200 mg/mL 100 mg IM .every 2 weeks 10/08/24 02/12/25 Unknown History intramuscular oil (Depo-Testosterone) Allergies Allergy/AdvReac Type Severity Reaction Status Date / Time No Known Allergies Allergy Mild Verified 03/11/25 05:15 Review of Systems 2 Review of Systems: All systems reviewed & are unremarkable except as noted in HPI and below PMFSH Past Medical History Medical History (Updated 03/11/25 @ 05:56 by Sol Gutierrez MD) Loose stools Anal itching Plantar fasciitis, bilateral Daytime sleepiness Rectal bleeding Chronic sinusitis Family history of diabetes mellitus Recurrent sinusitis Snoring Anxiety and depression Vitamin D deficiency Surgical History Surgical History Hx of colonoscopy 6.9.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 Family History Family History Father Diabetes mellitus Mother Diabetes mellitus Social History Social History Smoking status: Never smoker Second hand tobacco smoke exposure: No Alcohol intake: current Drinks per week: 1 Lack of Transportation: No Lack of Food: Never True Current Housing: I Have Housing Concerned About Future Housing: No Difficulty Paying Gas/Electric Bills: No Difficulty Paying for Meds: No Currently Unemployed: No Education: Trade/Vocational Certificate Difficulty w/ Childcare or Family Care: No Living arrangements: with family Spiritual care concerns: No Exam 2 Narrative: EXAMINATION OF ORGAN SYSTEMS/BODY AREAS: Constitutional: Vital signs per nursing GENERAL:[No acute distress, non-toxic appearing.] HEAD: Normal with no signs of head trauma. EYES: EOMI, conjunctiva normal ENT: Hearing grossly intact LUNGS: Nonlabored breathing. HEART: [Regular rate and rhythm] ABD: [Soft], [nontender to palpation] EXT: Normal range of motion SKIN: [No rashes or lesions.] NEURO: [Alert and oriented x 3. No gross focal sensory or strength deficits.] PSYCH: Normal affect Course Vital Signs Vital signs: Vital Signs Temperature 97.8 F 03/11/25 05:22 Pulse Rate 78 03/11/25 05:22 Respiratory Rate 16 03/11/25 05:22 Blood Pressure 134/93 H 03/11/25 05:22 Pulse Oximetry 95 03/11/25 05:22 Oxygen Delivery Room Air 03/11/25 05:22 Temperature 97.8 F 03/11/25 05:22 Pulse Rate 78 03/11/25 05:22 Respiratory Rate 16 03/11/25 05:22 Blood Pressure 134/93 H 03/11/25 05:22 Pulse Oximetry 95 03/11/25 05:22 Oxygen Delivery Room Air 03/11/25 05:22 MDM - Male Genitourinary MDM Narrative Medical decision making narrative: ED COURSE AND MEDICAL DECISION MAKIN-year-old male presenting to the emergency department for acute flank pain, symptoms are concerning for likely renal colic versus pyelonephritis. Urinalysis is ordered. [Morphine 4 mg, Zofran 4mg] are ordered. CT scan of the abdomen/pelvis is ordered. Labs are remarkable for: Some WBCs and leuk and bacteria in urine, so I did start antibiotics. CT scan of the abdomen/pelvis is reviewed by myself, appears to be about 4 mm stone UVJ/practically in bladder. On reevaluation, the patient completely pain free and asymptomatic now. Patient is strongly advised to return to the emergency department for any increasing pain not improving with medications, persistent nausea vomiting, fevers or chills or for any other concerns. Urology follow-up provided. Patient is comfortable with this plan and was discharged in fair condition. Lab Data 03/11/25 05:35 03/11/25 05:35 Labs: Lab Results 03/11/25 03/11/25 Range/Units 05:22 05:35 WBC 7.2 (4.5-10.0) K/mm3 RBC 5.18 (4.6-6.20) M/mm3 Hgb 16.3 (14.0-18.0) g/dL Hct 48.1 (42.0-52.0) % MCV 92.9 (80-100) fl MCH 31.5 (26-34) pg MCHC 33.9 (32-36) g/dl RDW 12.1 (11.5-14.5) % Plt Count 192 (150-375) k/mm3 MPV 9.0 (7.4-10.4) fl Immature Gran % (Auto) 0.4 (0-0.5) % Neut % (Auto) 74.3 H (45.5-73.1) % Lymph % (Auto) 17.0 L (18.3-44.2) % [place] % (Auto) 6.7 (2.6-8.5) % Eos % (Auto) 1.0 (0-4.4) % Baso % (Auto) 0.6 (0.2-1.2) % Lymph # (Auto) 1.22 (0.9-3.2) K/mm3 [place] # (Auto) 0.5 (0.1-0.6) K/mm3 Eos # (Auto) 0.1 (0-0.3) K/mm3 Baso # (Auto) 0.0 (0.0-0.1) K/mm3 Abs Immat Gran (auto) 0.03 (0.00-0.031) K/mm3 Absolute Neuts (auto) 5.4 (1.3-6.7) K/mm3 Absolute Nucleated RBC 0.000 (0.0-0.012) K/mm3 Nucleated RBC % 0.0 (0.0-0.2) % Sodium 133 L (137-145) mmol/L Potassium 4.1 (3.4-5.0) mmol/L Chloride 104 (98-107) mmol/L Carbon Dioxide 22 (22-30) mmol/L Anion Gap 7 (4-12) mmol/L BUN 16 (9-20) mg/dL Creatinine 1.09 (0.7-1.3) mg/dL Estim Creat Clear Calc 79 ml/min Estimated GFR > 60 (59 - ) Glucose 119 H (65-110) mg/dL Calcium 9.0 (8.4-10.2) mg/dL Total Bilirubin 0.8 (0.2-1.3) mg/dL AST 30 (17-59) U/L ALT 32 (6-50) U/L Alkaline Phosphatase 78 (38-126) U/L Total Protein 7.2 (6.3-8.2) g/dL Albumin 4.2 (3.5-5.1) g/dL Urine Color Yellow (Yellow) Urine Appearance Clear (Clear) Urine pH 6.0 (5.0-9.0) Ur Specific [place] 1.025 (1.001-1.035) Urine Protein Negative (Negative) mg/dL Urine Glucose (UA) Negative (Negative) mg/dL Urine Ketones Trace H (Negative) mg/dL Ur Blood (Man) Negative (Negative) Urine Nitrate Negative (Negative) Urine Bilirubin Negative (Negative) Urine Urobilinogen 1.0 (<2.0) mg/dL Leukocyte Esterase Rfl 1+ H (Negative) BETH/UL Urine RBC 0-2 (0-2) /hpf Urine WBC 6-10 H (0-3) /hpf Ur Squamous Epith Cells None seen (Few) /hpf Urine Bacteria Trace /hpf Urine Casts 0-2 Discharge Plan Discharge Clinical Impression: Kidney stone, Acute UTI Patient Disposition: Home Condition: Stable Instructions: Antibiotic Form, Kidney Stones (ED), Urinary Tract Infection in Men (ED) Additional Instructions: Please follow-up with the urologist, you can always return to the emergency room if your pain returns or worsens. Patient Language: Gibraltarian Prescriptions: New sulfamethoxazole-trimethoprim [Bactrim DS] 800-160 mg tablet 1 tablet PO Q12H Qty: 10 0RF ketorolac 10 mg tablet 10 mg PO Q8H PRN (Reason: pain) Qty: 14 0RF Rx Instructions: maximum total duration of 5 days from all oral, intranasal, or parenteral formulations tamsulosin [Flomax] 0.4 mg capsule 0.4 mg PO DAILY Qty: 14 0RF ondansetron 4 mg tablet,disintegrating 4 mg PO Q8H PRN (Reason: nausea and vomiting) Qty: 10 0RF No Action citalopram 20 mg tablet 20 mg PO DAILY Qty: 90 3RF testosterone cypionate [Depo-Testosterone] 200 mg/mL oil 100 mg IM .every 2 weeks Rx Instructions: inject 0.5 ml once every 2 weeks multivitamin [Men's Multi-Vitamin] Tablet 1 tablet PO DAILY mesalamine 1.2 gram tablet,delayed release (DR/EC) See Rx Instructions .ROUTE .COMPLEX Qty: 360 4RF Dose Instruction: TAKE 4 TABLETS BY MOUTH DAILY Rx Instructions: TAKE 4 TABLETS BY MOUTH DAILY Follow-up/Referrals: Daysi Hoang MD [Physician] - 2 Days Argenis Atkins MD [Primary Care Provider] -
--- OUTSIDE RECORDS SUMMARY | 2025-03-11 05:54 | XMS_ITS | Clinical Summary ---
Author Organization [facility] Address [address] [place] [address] Care Team Providers Care Metal Window Frame Maker Name Role Phone Kaur Evans MD Primary [...] patient's age to complete this topic Insurance [facility] Care Teams Metal Window Frame Maker Relationship Specialty Start Date End Date Kaur Evans MD [address] [place] [address] PCP - General FAMILY PRACTICE 03/17/20
--- OUTSIDE RECORDS SUMMARY | 2025-03-11 05:54 | XMS_ITS | Clinical Summary ---
Author Organization [facility] Address [address] [facility] [place] [address] Care Team Providers Care Refractory Specialist Name Role Phone Unavailable Primary Care Provider Unavailabl e Source Comments [facility],non-owned Affiliates and Associated Physician Practices is amultiple site organization consisting of ambulatory clinics and hospital sitesin [place], [place], [place] and [place]. This disclosure is being madepursuant to the Care Everywhere program and may not contain all information available regarding this patient. Last updated 18.[employer] [facility] Allergies No known active allergies Medications * [...] patient's age to complete this topic Insurance [facility] [address] [place] [address] [address] [employer] [facility] [place] [id number]
--- OUTSIDE RECORDS SUMMARY | 2025-03-11 05:54 | XMS_ITS | Continuity of Care Document ---
Author Organization [facility] Address [address] [place] [address] [address] [place] [address] Phone Care Team Providers Care Director Of Optimization Name Role Phone Chay Rueda Unavailable Unavailable Procedures Procedure Date Office/outpatient Visit, Est Office/outpatient Visit, Est Eye Exam, New Patient Advance Directives Directive Yes / No Effective Date File Name No Information Encounters Encounter Description Practice Location Reason(s) For Visit Diagnoses Date Provider Providers Copied on Encounter Office/outpat ient Visit, Est [facility], [address] [place] [address] [address], [place], [place], [address], [place] tel:[phone] [facility] No Information 9-200 9 Marybeth Ochoal. [address], [place], [place], [facility], . tel:[phone] Office/outpat ient Visit, [facility], [address] [place] [address] [address], [place], [place], [address], [place] tel:[phone] [facility] No Information Oct-0 5-200 7 Chip Edluis. [address], [place], [facility], [place]. tel:[phone] [facility], [address] [place] [address] [address], [place], [place], [address], [place] tel:[phone] [facility] No Information Oct-0 3-200 7 Chip Edluis. [address], [place], [address], [place]. tel:[phone] Family History Family Member Type Diagnosis Age At Onset No Information Payers Payer name Insurance type Covered constitution party ID Debbie gonzalez(s) [employer] CI [id number] Social History Type Description Quantity Date Captured [...]
--- OUTSIDE RECORDS SUMMARY | 2025-03-11 05:54 | XMS_ITS | Continuity of Care Document ---
Author Organization [facility] Address [address] [facility] [address] [place] [address] Phone Care Team Providers Care Electronic Operator Name Role Phone Hill Hardy MD Unavailable [...] Providers Copied on Encounter [facility] , [address] [facility] [address], [address], [place] tel:[phone] [facility] No Information 1 Antony Alejandre. [address], [place], [place], [address] . tel: [phone] OFFICE/OUTPAT IENT VISIT EST [facility] , [address] [facility] [address] [address], [place], [address], [place] tel:[phone] [facility] Contusion of left great toe without damage to nail, subsequent encounter 1 Antony Alejandre. [address], [place], [place], [address] . tel:[phone] OFFICE/OUTPAT IENT VISIT EST [facility] , [address] [address], [place], [address], [place] tel:[phone] [facility] Contusion of left great toe without damage to nail, subsequent encounter 1 Antony Alejandre. [address], [place], [place], [address] . tel: [phone] OFFICE/OUTPAT IENT VISIT EST [facility] , [address] [address], [place], [address], [place] tel:[phone] [facility] Contusion of left great toe without damage to nail, subsequent encounter 1 Antony Alejandre. [address], [place], [place], [address] . tel: [phone] OFFICE/OUTPAT IENT VISIT NEW [facility] , [address] [address], [place], [address], [place] tel:[phone] [facility] Pain in left footPain in left ankle and joints of left footBody mass index [BMI]30.0-30.9, adultContusion of left great toe without damage to nail, initial encounter 1 Antony Hill. [address], [place], [place], [address] . tel: [phone] Family History Family Member Type Diagnosis Age At Onset Father Problem Alive and well Mother Problem hypertension Father Problem hypertension Brother Problem Alive and well Mother Problem Diabetes mellitus Father Problem Diabetes mellitus Payers Payer name Insurance type Covered alliance party ID Authorevona lisa(s) [place] [employer] [place] [id number] Social History Type Description Quantity Date Captured [...]
--- NOTE | 2025-03-11 05:55 | PC.NURSE ---
ok to start abx without getting blood cultures per edp lacey
[2025-03-11] MEDS: ONDANSETRON INJ 4 MG/2 ML VIAL IV PUSH (05:57)
[2025-03-11] MEDS: MORPHINE SULFATE (*CRX) 4 MG/ML INJ IV PUSH (05:57)
[2025-03-11] MEDS: cefTRIAXone 2 GM in SODIUM CHLORIDE 0.9% IV 100 ML 200 ML IVPB (05:58)
[2025-03-11 06:02] LABS: Alanine Aminotransferase 32 U/L (6-50); Albumin Level 4.2 g/dL (3.5-5.1); Alkaline Phosphatase 78 U/L (38-126); Anion Gap 7 mmol/L (4-12); Aspartate Amino Transferase 30 U/L (17-59); Bilirubin,Total 0.8 mg/dL (0.2-1.3); Blood Urea Nitrogen 16 mg/dL (9-20); Calcium 9.0 mg/dL (8.4-10.2); Carbon Dioxide 22 mmol/L (22-30); Chloride 104 mmol/L (98-107); Estimated CRCL calculation 79 ml/min; Estimated Glomerular Filt Rate > 60; Glucose 119 mg/dL (65-110); Potassium 4.1 mmol/L (3.4-5.0); Sodium 133 mmol/L (137-145); Total Protein 7.2 g/dL (6.3-8.2)
--- NOTE | 2025-03-11 06:15 | PC.NURSE ---
pt oxygen dropped to 88% RA. Pt verbalized that he normally wears cpap with sleep but does not want us to put him on oxygen here. edp aware.
== END 2025-03-11 07:00 | disposition home or self-care (01) ==
PROVIDERS: Emergency Provider Emergency Medicine; PCP Family Medicine
DX: N39.0 Urinary tract infection, site not specified (principal); N20.0 Calculus of kidney; F41.9 Anxiety disorder, unspecified; F32.A Depression, unspecified
CPT/HCPCS: 36415; 74176; 80053; 81001; 85025; 87086; 96361; 96374; 96375; 99284; J0696; J2270; J2405

== ENCOUNTER 2025-04-24 16:36 | Emergency (ER) | payer OTHER, SELFPAY ==
--- OUTSIDE RECORDS SUMMARY | 2009-03-11 10:00 | XMS_ITS | Continuity of Care Document ---
Author Organization [facility] Address [address] [place] [address] [address] [place] [address] Phone Care Team Providers Care Supervisor Securities Vault Name Role Phone Chay Rueda Unavailable Unavailable Procedures Procedure Date Office/outpatient Visit, Est Office/outpatient Visit, Est Eye Exam, New Patient Advance Directives Directive Yes / No Effective Date File Name No Information Encounters Encounter Description Practice Location Reason(s) For Visit Diagnoses Date Provider Providers Copied on Encounter Office/outpat ient Visit, Est [facility], [address] [place] [address] [address], [place], [place], [id number], [place] tel:[phone] [facility] No Information 9200 9 Marybeth Cartwright. [address], [place], [place], [facility], . tel:[phone] Office/outpat ient Visit, [facility] [address] [place] [address] [address], [place], [place], [id number], [place] tel:[phone] [facility] No Information Oct-0 5-200 7 Chip Edluis. [address], [place], [place], [facility], [place]. tel:[phone] [facility], [address] [place] [address] [address], [place], [place], [address], [place] tel:[phone] [facility] No Information Oct-0 3-200 7 Chip Edluis. [address], [place], [address], [place]. tel:[phone] Family History Family Member Type Diagnosis Age At Onset No Information Payers Payer name Insurance type Covered libertarian ID Debbie gonzalez(s) [employer] CI [id number] Social History Type Description Quantity Date Captured [...]
--- OUTSIDE RECORDS SUMMARY | 2020-11-13 06:22 | XMS_ITS | Continuity of Care Document ---
Author Organization [facility] Address [address] [facility] [address] [place] [address] Phone Care Team Providers Care Laborer Wrecking And Salvaging Name Role Phone Hill Hardy MD Unavailable [...] Providers Copied on Encounter [facility] , [address] [facility] [address], [address], [place] tel:[phone] [facility] No Information 1 Antony Alejandre. [address], [place], [place], [address] . tel: [phone] OFFICE/OUTPAT IENT VISIT EST [facility] , [address] [facility] [address] [address], [place], [address], [place] tel:[phone] [facility] Contusion of left great toe without damage to nail, subsequent encounter 1 Antony Alejandre. [address], [place], [place], [id number] . tel:[phone] OFFICE/OUTPAT IENT VISIT EST [facility] , [address] [address], [place], [address], [place] tel:[phone] [facility] Contusion of left great toe without damage to nail, subsequent encounter 1 Antony Alejandre. [address], [place], [place], [address] . tel: [phone] OFFICE/OUTPAT IENT VISIT EST [facility] , [address] [address], [place], [address], [place] tel:[phone] [facility] Contusion of left great toe without damage to nail, subsequent encounter 1 Antony Alejandre. [address], [place], [place], [address] . tel: [phone] OFFICE/OUTPAT IENT VISIT NEW [facility] , [address] [address], [place], [address], [place] tel:[phone] [facility] Pain in left footPain in left ankle and joints of left footBody mass index [BMI]30.0-30.9, adultContusion of left great toe without damage to nail, initial encounter 1 Antony Hill. [address], [place], [place], [address] . tel: [phone] Family History Family Member Type Diagnosis Age At Onset Father Problem Alive and well Mother Problem hypertension Father Problem hypertension Brother Problem Alive and well Mother Problem Diabetes mellitus Father Problem Diabetes mellitus Payers Payer name Insurance type Covered republican ID Authorevnoa lisa(s) [employer] [place] [id number] Social History Type Description Quantity Date Captured [...]
[2025-04-24 16:45] VITALS: BP 140/84; PULSE 92; RESP 18; TEMP 36.9; O2SAT 97
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
--- OUTSIDE RECORDS SUMMARY | 2025-04-24 16:55 | XMS_ITS | Clinical Summary ---
Author Organization [facility] Address [address] [place] [address] Care Team Providers Care Pellet Press Operator Name Role Phone Kaur Evans MD [...] COVID-19 Vaccine (1 - 2023-2 5 season) 2025 Meningococcal B Vaccine Aged Out No l [...] patient's age to complete this topic Insurance [facility] Care Teams Pellet Press Operator Relationship Specialty Start Date End Date Kaur Evans MD [address] [place] [address] PCP - General FAMILY PRACTICE 03/17/20
--- NOTE | 2025-04-24 17:53 | PC.NURSE ---
per edp no labs needed. EDP spoke with toxicology
--- NOTE | 2025-04-24 17:55 | PC.NURSE ---
[place] poison control, recommend looking for infection, pain control and to follow up with pcp if needed
[2025-04-24] MEDS: KETOROLAC 30 MG/ML VIAL (*BKC) IM (18:08)
[2025-04-24 18:16] VITALS: BP 152/76; PULSE 76; RESP 16; TEMP 37.2; O2SAT 98
== END 2025-04-24 18:17 | disposition home or self-care (01) ==
PROVIDERS: Emergency Provider Student in an Organized Health Care Education/Training Program; PCP Family Medicine
DX: T65.891A Toxic effect of other specified substances, accidental (unintentional), initial encounter (principal); L03.312 Cellulitis of back [any part except buttock and flank]; T21.43XA Corrosion of unspecified degree of upper back, initial encounter; T21.45XA Corrosion of unspecified degree of buttock, initial encounter; T32.0 Corrosions involving less than 10% of body surface; Y99.0 Civilian activity done for income or pay
CPT/HCPCS: 96372; 99283; J1885

== ENCOUNTER 2025-05-02 08:21 | Outpatient (CLI) | payer OTHER, SELFPAY ==
--- OUTSIDE RECORDS SUMMARY | 2025-05-02 08:23 | XMS_ITS | Clinical Summary ---
Author Organization [facility] Address [address] [place] [address] Care Team Providers Care Die Attaching Machine Tender Name Role Phone Kaur Evans MD Primary [...] patient's age to complete this topic Insurance [facility] Care Teams Die Attaching Machine Tender Relationship Specialty Start Date End Date Kaur Evans MD [address] [place] [address] PCP - General FAMILY PRACTICE 03/17/20
--- OUTSIDE RECORDS SUMMARY | 2025-05-02 08:23 | XMS_ITS | Clinical Summary ---
Author Organization [facility] [employer] Address [address] [facility] [place] [address] Care Team Providers Care Client Engagement Manager Name Role Phone Unavailable Primary Care Provider Unavailabl e Source Comments [facility] [employer],non-owned Affiliates and Associated Physician Practices is amultiple site organization consisting of ambulatory clinics and hospital sitesin [place], [place], [place] and [place]. This disclosure is being madepursuant to the Care Everywhere program and may not contain all information available regarding this patient. Last updated 18.[employer] Allergies No known active allergies Medications * [...] 3-dose series) 1996 SCREENING FOR DIABETES 05/26/2018 DEPRESSION SCREENING 08/14/2024 COVID-19 VACCINE (1 - 2023-2 5 season) 2025 INFLUENZA VACCINE (#1) 2025 06/24/2018 ZOSTER VACCINE [...] patient's age to complete this topic Insurance [facility] Address: [place] [address] [employer] [place] [phone]
[2025-05-02 13:29] LABS: Hematocrit 47.3 % (42.0-52.0); Hemoglobin 15.2 g/dL (14.0-18.0); Mean Corpuscular HGB Conc 32.1 g/dl (32-36); Mean Corpuscular Hemoglobin 31.1 pg (26-34); Mean Corpuscular Volume 96.9 fl (80-100); Platelet Count Result 269 k/mm3 (150-375); Red Blood Count 4.88 M/mm3 (4.6-6.20); White Blood Count 5.3 K/mm3 (4.5-10.0)
[2025-05-02 13:42] LABS: Alanine Aminotransferase 36 U/L (6-50); Albumin Level 3.8 g/dL (3.5-5.1); Alkaline Phosphatase 69 U/L (38-126); Anion Gap 6 mmol/L (4-12); Aspartate Amino Transferase 43 U/L (17-59); Bilirubin,Total 0.5 mg/dL (0.2-1.3); Blood Urea Nitrogen 14 mg/dL (9-20); Calcium 8.6 mg/dL (8.4-10.2); Carbon Dioxide 27 mmol/L (22-30); Chloride 104 mmol/L (98-107); Cholesterol 188 mg/dL (0-200); Estimated Glomerular Filt Rate > 60; Glucose 84 mg/dL (65-110); HDL Direct 41 mg/dL; Potassium 5.0 mmol/L (3.4-5.0); Sodium 137 mmol/L (137-145); Total Protein 6.9 g/dL (6.3-8.2); Triglycerides 125 mg/dL (<150)
[2025-05-02 14:16] LABS: Ferritin 103.00 ng/mL (17.9-464)
[2025-05-02 14:27] LABS: Prostate Specific Antigen 1.7 ng/mL (< OR = 4.0)
[2025-05-09 00:07] LABS: Free Testosterone (Direct) 12.0 pg/mL (6.8-21.5)
== END 2025-05-02 08:22 | disposition home or self-care (01) ==
LOC: ANHGOSHLAB 08:22
PROVIDERS: PCP Family Medicine; Visit Provider Family Medicine
DX: E78.2 Mixed hyperlipidemia (principal); D75.1 Secondary polycythemia; F41.9 Anxiety disorder, unspecified; F32.9 Major depressive disorder, single episode, unspecified; R79.89 Other specified abnormal findings of blood chemistry; Z12.5 Encounter for screening for malignant neoplasm of prostate
CPT/HCPCS: 36415; 80053; 80061; 82728; 84153; 84402; 84403; 85027; G0103

== ENCOUNTER 2025-05-28 07:15 | Outpatient (RCR) | payer OTHER, SELFPAY ==
--- NOTE | 2025-05-07 08:56 | WNDPHOTO ---
PHOTO ONLY - See Nursing Notes and/ or assessments for documentation.
[2025-05-07 09:00] VITALS: BMI 30.1
--- NOTE | 2025-05-07 09:00 | WNDPHOTO ---
PHOTO ONLY - See Nursing Notes and/ or assessments for documentation.
--- NOTE | 2025-05-07 09:00 | WNDPHOTO ---
PHOTO ONLY - See Nursing Notes and/ or assessments for documentation.
== END 2025-07-21 08:15 | disposition home or self-care (01) ==
LOC: ANHWOC 07:15
PROVIDERS: PCP Family Medicine; Visit Provider Student in an Organized Health Care Education/Training Program
DX: T30.4 Corrosion of unspecified body region, unspecified degree (principal)
CPT/HCPCS: 99213; 99214; 99215; A9270; G0463

== ENCOUNTER 2025-05-30 13:50 | Outpatient (CLI) | payer OTHER, SELFPAY ==
--- OUTSIDE RECORDS SUMMARY | 2009-03-11 10:00 | XMS_ITS | Continuity of Care Document ---
Author Organization [facility] Address [address] [place] [address] [address] [place] [address] Phone Care Team Providers Care It Business Process Architect Name Role Phone Chay Rueda Unavailable Unavailable Procedures Procedure Date Office/outpatient Visit, Est Office/outpatient Visit, Est Eye Exam, New Patient Advance Directives Directive Yes / No Effective Date File Name No Information Encounters Encounter Description Practice Location Reason(s) For Visit Diagnoses Date Provider Providers Copied on Encounter Office/outpat ient Visit, [facility], [id number] [place] [address] [address], [place], [place], [id number], [place] tel:[phone] [facility] No Information 9[address] Marybeth Cartwright. [address], [place], [place], [facility], . tel:[phone] Office/outpat ient Visit, [facility] [place], [address] [place] [address] [address], [place], [place], [id number], [place] tel:[phone] [facility] No Information Oct-0 5-200 7 Chip Edluis. [address], [place], [place], [facility], [place]. tel:[phone] [facility], [address] [place] [address] [address], [place], [place], [id number], [place] tel:[phone] [facility] No Information Oct-0 3-200 7 Chip Edluis. [address], [place], [address], [place]. tel:[phone] Family History Family Member Type Diagnosis Age At Onset No Information Payers Payer name Insurance type Covered constitution party ID Debbie gonzalez(s) [employer] [place] [id number] Social History Type Description Quantity Date Captured Comments Sex Male Smoking Status No Information Chief Complaint And Reason For Visit No Information Reason For Referral Reason For Referral No Information History Of Present Illness Encounter Date Complaint History Of Prese nt Illness No Information Functional Status Date Functional Assessmen t No Information Instructions Date Instruction Additional Infor mation No Information Assessments Type Assessment Date No Information Patient Care Teams Name Effective Dates (start - stop) Status Members No Information
--- OUTSIDE RECORDS SUMMARY | 2020-11-13 06:22 | XMS_ITS | Continuity of Care Document ---
Author Organization [facility] Address [address] [facility] [address] [place] [address] Phone Care Team Providers Care Medical Officer Psychiatry Name Role Phone Hill Hardy MD Unavailable Unavailable Allergies, Adverse Reactions, Alerts Substance Reaction Status Criticality No Known Allergies Active No Inform ation Medications Medication Instructions Dosage Effective Dates (start - stop) Status Comments Voltaren 1 % topical gel apply 2 gram by topical route 4 times every day to the affected area(s) - Active Procedures Procedure Date OFFICE/OUTPATIENT VISIT EST OFFICE/OUTPATIENT VISIT EST OFFICE/OUTPATIENT VISIT EST RADEX FOOT 2 VIEWS RADEX ANKLE COMPL MINIMUM 3 VIEWS OFFICE/OUTPATIENT VISIT NEW Advance Directives Directive Yes / No Effective Date File Name No Information Encounters Encounter Description Practice Location Reason(s) For Visit Diagnoses Date Provider Providers Copied on Encounter [facility] , [address] [facility] [address], [address], [place] tel:[phone] [facility] No Information 1 Antony Alejandre. [address], [place], [place], [id number] . tel: [phone] OFFICE/OUTPAT IENT VISIT EST [facility] , [address] [facility] [address] [address], [place], [address], [place] tel:[phone] [facility]usion of left great toe without damage to nail, subsequent encounter 1 Antony Alejandre. [address], [place], [place], [id number] . tel:[phone] OFFICE/OUTPAT IENT VISIT EST [facility] , [address] [address], [place], [address], [place] tel:[phone] [facility] Contusion of left great toe without damage to nail, subsequent encounter 1 Antony Alejandre. [address], [place], [place], [id number] . tel: [phone] OFFICE/OUTPAT IENT VISIT EST [facility] , [address] [address], [place], [address], [place] tel:[phone] [facility] Contusion of left great toe without damage to nail, subsequent encounter 1 Antony Alejandre. [address], [place], [place], [address] . tel: [phone] OFFICE/OUTPAT IENT VISIT NEW [facility] , [address] [address], [place], [address], [place] tel:[phone] [facility] Pain in left footPain in left ankle and joints of left footBody mass index [BMI]30.0-30.9, adultContusion of left great toe without damage to nail, initial encounter 1 Antony Hill. [address], [place], [place], [address] . tel: [phone] Family History Family Member Type Diagnosis Age At Onset Father Problem Alive and well Mother Problem hypertension Father Problem hypertension Brother Problem Alive and well Mother Problem Diabetes mellitus Father Problem Diabetes mellitus Payers Payer name Insurance type Covered constitution party ID Authorevona lisa(s) [employer] [place] [id number] Social History Type Description Quantity Date Captured Comments Alcohol Use Details Unknown Caffeine Use Details Unknown Tobacco Use Status No Information Smoking Status No Information Sex Male Chief Complaint And Reason For Visit No Information Reason For Referral Reason For Referral No Information Plan Of Treatment Date Type Action Status Referral Ordered: RADEX ANKLE COMPL MINIMUM 3 VIEWS LT ordered Referral Ordered: RADEX FOOT 2 VIEWS LT ordered History Of Present Illness Encounter Date Complaint History Of Prese nt Illness No Information Functional Status Date Functional Assessmen t No Information Instructions Date Instruction Additional Infor robert Giving encouragement to exercise Related to Body mass index [BMI]30.0-30.9, adult Assessments Type Assessment Date No Information Patient Care Teams Name Effective Dates (start - stop) Status Members No Information
--- OUTSIDE RECORDS SUMMARY | 2025-05-30 13:54 | XMS_ITS | Clinical Summary ---
Author Organization [facility] Address [address] [place] [address] Care Team Providers Care Addressograph Operator Name Role Phone Kaur Evans MD [...] Vaccine (1 - 2023-2 5 season) 2025 Influenza Adult (#1) 2025 06/24/2018 Meningococcal B Vaccine Aged Out No l onger eligible based on patient's age to complete this topic Meningococcal Vaccine Aged Out No gregory tavon eligible based on patient's age to complete this topic Pneumococcal Vaccine: Pediat rics (0 to 5 Years) and At-Risk Patients (6 to 49 Years) Aged Out No longer eligi ble based on patient's age to complete this topic RSV Immunizations Under 20 Months Aged Out No longer eligible based on patient's age to complete this topic Insurance [facility] Care Teams Addressograph Operator Relationship Specialty Start Date End Date Kaur Evans MD [address] [place] [address] PCP - General FAMILY PRACTICE 03/17/20
--- OUTSIDE RECORDS SUMMARY | 2025-05-30 13:54 | XMS_ITS | Clinical Summary ---
Author Organization [facility] [employer] Address [address] [facility] [place] [address] Care Team Providers Care [facility] Name Role Phone Unavailable Primary Care Provider Unavailabl e Source Comments [facility] [employer],non-owned Affiliates and Associated Physician Practices is amultiple site organization consisting of ambulatory clinics and hospital sitesin [place], [place], [place] and [place]. This disclosure is being madepursuant to the Care Everywhere program and may not contain all information available regarding this patient. Last updated 18.[employer] Allergies No known active allergies Medications * [...] patient's age to complete this topic Insurance [facility] [place] [address] [employer] [place] [phone]
[2025-05-30 18:27] LABS: Hematocrit 47.4 % (42.0-52.0); Hemoglobin 15.8 g/dL (14.0-18.0); Mean Corpuscular HGB Conc 33.3 g/dl (32-36); Mean Corpuscular Hemoglobin 31.3 pg (26-34); Mean Corpuscular Volume 94.0 fl (80-100); Platelet Count Result 215 k/mm3 (150-375); Red Blood Count 5.04 M/mm3 (4.6-6.20); White Blood Count 6.7 K/mm3 (4.5-10.0)
[2025-05-30 18:38] LABS: Alanine Aminotransferase 40 U/L (6-50); Albumin Level 3.7 g/dL (3.5-5.1); Alkaline Phosphatase 59 U/L (38-126); Anion Gap 5 mmol/L (4-12); Aspartate Amino Transferase 33 U/L (17-59); Bilirubin,Total 0.6 mg/dL (0.2-1.3); Blood Urea Nitrogen 13 mg/dL (9-20); Calcium 8.5 mg/dL (8.4-10.2); Carbon Dioxide 29 mmol/L (22-30); Chloride 105 mmol/L (98-107); Estimated Glomerular Filt Rate > 60; Glucose 93 mg/dL (65-110); Potassium 3.8 mmol/L (3.4-5.0); Sodium 139 mmol/L (137-145); Total Protein 6.5 g/dL (6.3-8.2)
== END 2025-05-30 13:51 | disposition home or self-care (01) ==
LOC: ANHGOSHLAB 13:51
PROVIDERS: PCP Family Medicine; Visit Provider Student in an Organized Health Care Education/Training Program
DX: F32.9 Major depressive disorder, single episode, unspecified (principal); D75.1 Secondary polycythemia; E78.2 Mixed hyperlipidemia; R79.89 Other specified abnormal findings of blood chemistry; F41.9 Anxiety disorder, unspecified
CPT/HCPCS: 36415; 80053; 85027

== ENCOUNTER 2025-05-31 09:48 | Outpatient (CLI) | payer OTHER, SELFPAY | END 2025-05-31 09:49 | disposition home or self-care (01) | LOC: ANHLAB 09:51 | PROVIDERS: PCP Family Medicine; Visit Provider Student in an Organized Health Care Education/Training Program | DX: G47.33 Obstructive sleep apnea (adult) (pediatric) (principal); G47.10 Hypersomnia, unspecified; F41.8 Other specified anxiety disorders | CPT/HCPCS: 87045; 87046; 87427 ==